=== PATIENT | male | born 1980 | race Caucasian/White ===

== ENCOUNTER 2018-08-04 07:55 | Day surgery (SDC) | payer OTHER ==
[2018-08-01 14:38] VITALS: BMI 49.9
[2018-08-04] MEDS ORDERED: LIDOCAINE VISCOUS 2% ORAL/TOP 20 ML UNIT-DOSE CUP MM ONE (09:06)
[2018-08-04 09:32] VITALS: TEMP 98.8
[2018-08-04 10:54] VITALS: BP 146/85; PULSE 87
--- NOTE | 2018-08-06 11:30 | PATH ---
Surgical Pathology Report Patient Name: DEAN OLEARY [facility]. Rec. #: [id number] /Age/Gender: 1980 (Age: 38) / M Account: [id number] Location: [facility]-ENDOSCOPY Taken: 08/04/2018 Received: 08/04/2018 Reported: 08/06/2018 Physicians: Patricia Chang M.D. Specimen(s) Received A: BX DUODENUM B: BX ANTRUM PROMINENT FOLD C: BX ANTRUM Clinical History Pre-evaluation for bariatric surgery Postoperative diagnosis: Gastritis Final Diagnosis A. DUODENUM, SECOND PORTION AND DUODENAL BULB, BIOPSY: DUODENAL MUCOSA WITH MILD ACUTE AND CHRONIC DUODENITIS. B. STOMACH, ANTRUM, PROMINENT FOLD, BIOPSY: GASTRIC MUCOSA WITH MILD CHRONIC GASTRITIS. IMMUNOHISTOCHEMICAL STAIN FOR H. PYLORI IS NEGATIVE. C. STOMACH, ANTRUM, BIOPSY: GASTRIC ANTRAL MUCOSA WITH MILD CHRONIC GASTRITIS. IMMUNOHISTOCHEMICAL STAIN FOR H. PYLORI IS NEGATIVE. Electronically Signed Silvina Nevarez M.D. Gross Description A. Received in formalin, labeled "biopsy second portion of duodenum and duodenal bulb" are 3 lechuga, irregular portions of soft tissue ranging from 0.3-0.4 cm. in greatest dimension. The specimens are submitted in toto in one cassette. B. Received in formalin, labeled "biopsy antrum prominent fold" are 3 lechuga, irregular portions of soft tissue ranging from 0.1-0.4 cm. in greatest dimension. The specimens are submitted in toto in one cassette. C. Received in formalin, labeled "biopsy antrum" are 2 lechuga, irregular portions of soft tissue measuring 0.1 and 0.6 cm. in greatest dimension. The specimens are submitted in toto in one cassette. 08/04/2018 saudi08/04/2018
== END 2018-08-04 11:03 | disposition home or self-care (01) ==
LOC: JASU-ENDO 07:55
PROVIDERS: ATTEND Internal Medicine Gastroenterology
PROC: 0DB68ZX Excision of Stomach, Via Natural or Artificial Opening Endoscopic, Diagnostic (ICD-10-PCS; 2018-08-04)
PROC: 0DB98ZX Excision of Duodenum, Via Natural or Artificial Opening Endoscopic, Diagnostic (ICD-10-PCS; principal; 2018-08-04 09:00)
DX: Z01.818 Encounter for other preprocedural examination (principal); K29.80 Duodenitis without bleeding; K29.50 Unspecified chronic gastritis without bleeding; G47.30 Sleep apnea, unspecified; E11.9 Type 2 diabetes mellitus without complications; E66.01 Morbid (severe) obesity due to excess calories; E78.5 Hyperlipidemia, unspecified; Z68.42 Body mass index [BMI] 45.0-49.9, adult
CPT/HCPCS: 88305-TC; 88342-TC